=== PATIENT | female | born 1955 | race Caucasian/White ===

== ENCOUNTER 2016-08-14 10:00 | Emergency (ER) | payer SELFPAY ==
[~2016-08-14] VITALS: Ht 160 cm; Wt 85.0 kg
[2016-08-14 10:09] VITALS: TEMP 36.9; Ht 160 cm; Wt 85.0 kg
[2016-08-14] MEDS ORDERED: METO50TA16 PO (11:03)
[2016-08-14] MEDS ORDERED: LOSA50TA6 PO (11:04)
[2016-08-14] MEDS ORDERED: [UNRECOGNIZED DRUG - OTHER] PO (11:06)
--- NOTE | 2016-08-14 11:17 | DIAGNOSTIC IMAGING REPORT ---
RIGHT KNEE 3 VIEWS CLINICAL HISTORY: Right knee pain status post trauma COMPARISON: None. DISCUSSION: There is a depressed lateral tibial plateau fracture. Degenerative changes are present within the patellofemoral joint. There is a small joint effusion. IMPRESSION: Depressed lateral tibial plateau fracture. Electronically signed by: Nathan Woods M.D. 08/14/2016 11:16 AM Dictated Date/Time: 08/14/2016 11:15 AM
--- NOTE | 2016-08-14 13:34 | DIAGNOSTIC IMAGING REPORT ---
RIGHT LOWER EXTREMITY WITHOUT CLINICAL HISTORY: 61 years-old Female presenting with trauma, right knee pain, difficulty bearing weight, found to have depressed lateral tibial plateau fracture, CT for further evaluation. TECHNIQUE: Multidetector CT imaging of the right lower extremity was performed without the use of intravenous contrast. COMPARISON: Correlation made to plain radiographs performed the same day. FINDINGS: Machine Preservative Filler topogram demonstrates a grossly normal-appearing left knee joint and depressed right lateral tibial plateau. Diffuse depression of the lateral aspect of the articular surface of the right lateral tibial plateau with resultant apparent joint space widening. Fragmentation of the articular cortex also noted in this region. No extension of the fracture planes to the metaphysis. The medial tibial plateau is intact. Due to the diffuse nature of the depressed lateral aspect of the lateral tibial plateau, measurement of the degree of depression is difficult. No gross evidence of cortical offset. The right compartment joint space measures 6-7 mm, and the left compartment joint space maximally measures 13 mm. Tricompartmental degenerative changes of the knee joint are also noted evidence by osteophytosis. Lipohemarthrosis noted resulting in displacement of the patella anterolaterally. Patellar tendon grossly intact although with a redundant/buckled appearance. Infiltration of the subcutaneous tissue overlying the patella may indicate site of injury. Quadriceps tendon also grossly intact. Popliteal cyst noted. Normal muscle bulk. IMPRESSION: 1. Depression of the lateral aspect of the articular surface of the right lateral tibial plateau without associated extension of the fracture into the metaphysis. Resultant joint space widening described above. Electronically signed by: Hector Roth 08/14/2016 1:33 PM Dictated Date/Time: 08/14/2016 1:01 PM
[2016-08-14] MEDS ORDERED: HYDR-5688 PO (13:58)
--- NOTE | 2016-08-14 13:59 | EMERGENCY ROOM VISIT NOTE ---
ED Visit Note First contact with patient: 10:31 CHIEF COMPLAINT: Right knee injury this morning HISTORY OF PRESENT ILLNESS: Patient is a 61-year-old [facility] female who is in the emergency department, they by her daughter and her son-in-law (a [facility] [employer]), for evaluation of right knee pain and inability to bear weight after a fall that occurred acutely this morning. She was stepping backwards, and actually stepped on a ball. She fell, with the right knee flexed, landing on the knee, which was also twisted slightly. She complains of pain on the lateral aspect of the knee. She is unable to bear weight due to pain. She rates her discomfort a 3/10. She did not have any medications for discomfort. No prior history of injuries to this knee. She denies any numbness, tingling or weakness into the right lower extremity. There were no other injuries related to the fall. She does report a history of osteoporosis, and takes calcium and vitamin D. REVIEW OF SYSTEMS: Review of systems as per HPI. All other systems reviewed were negative. 10 systems reviewed. PMH: Electronic medical records are reviewed and summarized as above/below. See Problem List. SOCIAL HISTORY: Patient lives at home with her in [facility]. She is visiting family here locally in until September. PHYSICAL EXAM: Vital Signs: Reviewed Nurse's notes. MENTAL STATUS: Patient is a pleasant, well-appearing 61-year-old white female who is awake and alert and in no acute distress. HEART: Regular rate and rhythm. LUNGS: Clear to auscultation. KNEE: Examination of the right knee show a superficial area of ecchymosis anteriorly. She has a large joint effusion palpable. There is no peripatellar tenderness or crepitus. She is tender over the lateral joint line. Range of motion is not assessed due to the nature of the injury. The calf is soft and nontender. The pulses are easily palpable. Sensation light touch is intact over the right lower extremity. EMERGENCY DEPARTMENT COURSE: The patient was seen and assessed as above. Right knee x-rays were obtained and consistent with a depressed lateral tibial plateau fracture. CT scan was ordered to evaluate the fracture pattern in more detail. The patient declined analgesia while in the emergency department. Radiographically findings were reviewed with Kash Lewis PA-C with [facility]. He recommended knee immobilizer and toe touch weightbearing with a walker and close follow-up in the office later this week. Family was comfortable with this. The patient was wrapped with an kathy wrap, placed in a knee immobilizer and instructed on a toe touch weight bearing gait using a walker. She was provided a prescription for Ovid to use as needed for severe pain. Differential diagnoses entertained included patellar fracture, tibial plateau fracture, knee contusion, dislocation, meniscal or ligamentous injury, among others. The patient rated her pain a 0/10 at discharge. Medication reconciliation: I attest that I have personally reviewed the patient' s current medication list. Blood pressure screening: Patient was found to have a slightly elevated blood pressure due to circumstances. I do not believe that the patient requires hypertension monitoring. RIGHT LOWER EXTREMITY WITHOUT CLINICAL HISTORY: 61 years-old Female presenting with trauma, right knee pain, difficulty bearing weight, found to have depressed lateral tibial plateau fracture, CT for further evaluation. TECHNIQUE: Multidetector CT imaging of the right lower extremity was performed without the use of intravenous contrast. COMPARISON: Correlation made to plain radiographs performed the same day. FINDINGS: Bill Poster Installer topogram demonstrates a grossly normal-appearing left knee joint and depressed right lateral tibial plateau. Diffuse depression of the lateral aspect of the articular surface of the right lateral tibial plateau with resultant apparent joint space widening. Fragmentation of the articular cortex also noted in this region. No extension of the fracture planes to the metaphysis. The medial tibial plateau is intact. Due to the diffuse nature of the depressed lateral aspect of the lateral tibial plateau, measurement of the degree of depression is difficult. No gross evidence of cortical offset. The right compartment joint space measures 6-7 mm, and the left compartment joint space maximally measures 13 mm. Tricompartmental degenerative changes of the knee joint are also noted evidence by osteophytosis. Lipohemarthrosis noted resulting in displacement of the patella anterolaterally. Patellar tendon grossly intact although with a redundant/buckled appearance. Infiltration of the subcutaneous tissue overlying the patella may indicate site of injury. Quadriceps tendon also grossly intact. Popliteal cyst noted. Normal muscle bulk. IMPRESSION: 1. Depression of the lateral aspect of the articular surface of the right lateral tibial plateau without associated extension of the fracture into the metaphysis. Resultant joint space widening described above. RIGHT KNEE 3 VIEWS CLINICAL HISTORY: Right knee pain status post trauma COMPARISON: None. DISCUSSION: There is a depressed lateral tibial plateau fracture. Degenerative changes are present within the patellofemoral joint. There is a small joint effusion. IMPRESSION: Depressed lateral tibial plateau fracture. Problem List Medical Problems: (1) Hypertension Status: Chronic (2) Spondylitis, cervical Status: Chronic Surgical Problems: (1) Hx of cholecystectomy Status: Resolved Current/Historical Medications Scheduled Losartan Potassium (Cozaar), 50 MG PO BID Metoprolol Tartrate (Lopressor) (Lopressor), 50 MG PO BID [Nicergoline], 30 MG PO DAILY Scheduled PRN Hydrocodone/Acetaminophen 5MG/325MG (Ovid 5MG/325MG), 1-2 TABLETS PO Q4 PRN for Pain Allergies Coded Allergies: Aspirin (Unverified Allergy, Severe, ANAPHYLAXIS, 08/14/16) Vital Signs Date Time Temp Pulse Resp B/P (MAP) Pulse Ox O2 Delivery O2 Flow Rate FiO2 08/14/16 14:09 65 16 137/88 95 08/14/16 12:15 62 16 146/93 96 Room Air 08/14/16 10:09 36.9 64 18 160/90 98 Room Air Departure Information Impression Primary Impression: Tibial plateau fracture, right Prescriptions Hydrocodone/Acetaminophen 5MG/325MG (Ovid 5MG/325MG) Tab 1-2 TABLETS PO Q4 Y for Pain, #30 TAB PRN PAIN Prov: Kim Lama PA 08/14/16 Referrals Ifeanyi Claros D.O. (PCP) Armando Gonzalez M.D. Patient Instructions [facility] Additional Instructions Hydrocodone/Acetaminophen (Ovid) 5/325 mg: Take 1-2 pills every four hours for breakthrough pain. Avoid alcohol, operating machinery or dangerous equipment, working on ladders or roofs, DRIVING, or situations where being under the influence may be dangerous. It is recommended to use an [id number] stool softener such as Colace, 100mg twice daily while taking this medication to avoid constipation. Ibuprofen(Motrin, Advil) may be used for fever or pain. Use 600mg every six hours as needed. Take with food. Avoid using more than 2400mg in a 24 hour period. Do not use 2400mg per day for more than three consecutive days without physician direction. Prolonged inappropriate use can lead to stomach upset or ulcers. This medication can be taken if you need to drive, work, or perform activities which may be dangerous when taking narcotic pain medication. (AND/OR) Acetaminophen(Tylenol) may be used for fever or pain. Use 1000mg every six hours as needed. Avoid using more than 3000mg in a 24 hour period. This medication can be taken if you need to drive, work, or perform activities which may be dangerous when taking narcotic pain medication. Ice compresses for 20 minutes at a time four times daily for 2-3 days. Use the knee immobilizer and walker as instructed, toe-touch weightbearing only on the right. Rest and elevate your injury. Continue current medications. Return to the ER immediately for any numbness, tingling, severe pain, extreme swelling in the extremity or as needed. Call [facility] this afternoon or on Sunday to schedule a follow-up appointment with Dr. Gonzalez.
[2016-08-14 14:09] VITALS: BP 137/88; PULSE 65; O2SAT 95
== END 2016-08-14 14:20 | disposition home or self-care (01) ==
LOC: C.EDB 10:03 → C.EDC 14:20
DX: S82.141A Displaced bicondylar fracture of right tibia, initial encounter for closed fracture (principal); W18.31XA Fall on same level due to stepping on an object, initial encounter; M81.0 Age-related osteoporosis without current pathological fracture; M25.461 Effusion, right knee; I10 Essential (primary) hypertension; M46.92 Unspecified inflammatory spondylopathy, cervical region